=== PATIENT | male | born 1980 | race Caucasian/White ===

== ENCOUNTER 2017-06-29 20:08 | Emergency (ER) | payer MEDICARE, MEDICAID ==
[2017-06-29] MEDS ORDERED: MORPHINE SULFATE 10 MG/ML INJ IV ONE (20:25)
[2017-06-29] MEDS ORDERED: ONDANSETRON HCL INJ/PF 4 MG/2 ML SDV IV ONE (20:25)
--- NOTE | 2017-06-29 20:26 | ER Document Report ---
ED Fall - General Chief Complaint: Fall Stated Complaint: MID LOWER BACK PAIN Time Seen by Provider: 06/29/17 20:17 Notes: Patient is a 37-year-old male who comes emergency department for chief complaint of fall, he states he was standing on the next and last rung on a step ladder when the ladder broke and he fell to the floor. He states he mainly landed on his left hip but he reports pain in his lower back and in both hips. He denies head injury, neck pain, focal numbness or weakness, denies incontinence of bowel or urinary incontinence. He does not take any daily medications. He denies any other injuries. Came by EMS, given 30 mg of Toradol. TRAVEL OUTSIDE OF THE [place] IN LAST 30 DAYS: No - Related data Allergies/Adverse Reactions: amoxicillin [Amoxicillin] Allergy (Verified 11/26/14 13:10) codeine [Codeine] Allergy (Verified 11/26/14 13:10) Past Medical History - General Information source: Patient - Social History Smoking Status: Never Smoker Frequency of alcohol use: None Drug Abuse: None Lives with: Family Family History: Reviewed & Not Pertinent - Medical History Medical History: Negative Surgical Hx: Negative - Immunizations Immunizations up to date: Yes Hx Diphtheria, Pertussis, Tetanus Vaccination: Yes Review of Systems - Review of Systems Constitutional: No symptoms reported EENT: No symptoms reported Cardiovascular: No symptoms reported Respiratory: No symptoms reported Gastrointestinal: No symptoms reported Genitourinary: No symptoms reported Male Genitourinary: No symptoms reported Musculoskeletal: See HPI Skin: No symptoms reported Hematologic/Lymphatic: No symptoms reported Neurological/Psychological: No symptoms reported Physical Exam - Vital signs Vitals: Temp Pulse BP Pulse Ox 97.6 F 68 133/88 H 96 06/29/17 20:45 06/29/17 20:45 06/29/17 20:45 06/29/17 20:45 Interpretation: Normal - General General appearance: Appears well, Alert, Anxious In distress: None - Patient talking nervously, appears to be anxious but does not appear to be in distress - HEENT Head: Normocephalic, Atraumatic Eyes: Normal Conjunctiva: Normal Extraocular movements intact: Yes Eyelashes: Normal Pupils: PERRL Nasal: Normal Mouth/Lips: Normal Mucous membranes: Normal Pharynx: Normal Neck: Normal - Respiratory Respiratory status: No respiratory distress Chest status: Nontender Breath sounds: Normal. No: Decreased air movement, Wheezing Chest palpation: Normal - Cardiovascular Rhythm: Regular. No: Tachycardia Heart sounds: Normal auscultation, S1 appreciated, S2 appreciated Murmur: No - Abdominal Inspection: Normal Distension: No distension Bowel sounds: Normal Tenderness: Nontender. No: Tender, Guarding Organomegaly: No organomegaly - Back Back: Tender - Generalized mild thoracic tenderness in the lower part of the thoracic back, generalized tenderness in the lumbar area as well. No saddle anesthesia, patient moves all extremities and full range of motion, normal distal neurovascular exam. - Extremities General upper extremity: Normal inspection, Nontender, Normal color, Normal ROM , Normal temperature General lower extremity: Normal inspection, Nontender, Normal color, Normal ROM , Normal temperature, Normal weight bearing. No: Kamryn's sign - Neurological Neuro grossly intact: Yes Cognition: Normal Orientation: AAOx4 Piter Coma Scale Eye Opening: Spontaneous [place] Coma Scale Verbal: Oriented [place] Coma Scale Motor: Obeys Commands Piter Coma Scale Total: 15 Speech: Normal Motor strength normal: LUE, RUE, LLE, RLE Sensory: Normal - Psychological Associated symptoms: Normal affect, Normal mood - Skin Skin Temperature: Warm Skin Moisture: Dry Skin Color: Normal Course - Re-evaluation Re-evalutation: Patient complaining of hips bilaterally, I do not appreciate any significant tenderness, I do appreciate some mid to lower back tenderness on exam, there are no signs of trauma, no ecchymosis. X-ray shows mild compression of L1 and L2 vertebral bodies, no fracture, no displacement. Suspect acute. However patient ambulates without difficulty, has full range of motion of extremities, has no numbness, has normal neurovascular examination. No saddle anesthesia. Patient given copy of his report, pain medication, specific instructions for close follow-up, return precautions. Discussed with brother at bedside. Patient and mother state understanding and agreement. - Vital Signs Vital signs: Temp Pulse Resp BP Pulse Ox 99.1 F 81 16 143/91 H 94 06/29/17 22:40 06/29/17 22:40 06/29/17 22:40 06/29/17 22:40 06/29/17 22:40 Discharge - Discharge Clinical Impression: Fall Qualifiers: Encounter type: initial encounter Qualified Code(s): W19.XXXA - Unspecified fall, initial encounter Lower back pain Qualifiers: Chronicity: acute Back pain laterality: bilateral Sciatica presence: without sciatica Qualified Code(s): M54.5 - Low back pain Condition: Stable Disposition: HOME, SELF-CARE Additional Instructions: X-ray imaging indicates a compression deformity in the lumbar spine, however there are no fractures or concerning abnormalities on your exam. He will be sore, take the pain medication as prescribed, take the muscle relaxer, apply ice tonight, apply heat to the area over the next few days. Call your primary care provider for a close follow-up in the next few days for additional management. Return immediately to the emergency department if you develop any concerning symptoms such as numbness, inability to urinate, accidentally soiling herself, or any other concerning symptoms. Prescriptions: Morphine Sulfate [Morphine Ir 15 Mg Tablet] 15 mg PO Q4HP PRN #15 tablet PRN Reason: Methocarbamol [Robaxin] 500 mg PO BID PRN #20 tablet PRN Reason: Referrals: AIDEE FERNÁNDEZ MD [Primary Care Provider] - Follow up as needed
--- NOTE | 2017-06-29 21:39 | RADIOLOGY REPORT (SQ) ---
EXAM DESCRIPTION: HIP BILATERAL COMPLETED DATE/TIME: 06/29/2017 9:18 pm REASON FOR STUDY: fall, pain COMPARISON: None. NUMBER OF VIEWS: Two views. TECHNIQUE: AP pelvis and additional frog-leg view of the right and left hip. LIMITATIONS: None. FINDINGS: MINERALIZATION: Normal. PRIMARY HIP: No fracture or dislocation. No worrisome bone lesions. OPPOSITE HIP: No fracture or dislocation. No worrisome bone lesions. PUBIS AND ISCHIUM: No fracture. PELVIS: No fracture. SACRUM: No fracture or dislocation. No worrisome bone lesions. LOWER LUMBAR SPINE: No fracture or dislocation. No worrisome bone lesions. No significant disc disea se. SOFT TISSUES: No findings. OTHER: No other significant finding. IMPRESSION: No fracture. TECHNICAL DOCUMENTATION: JOB ID: [id number] [employer]- All Rights Reserved
--- NOTE | 2017-06-29 21:40 | RADIOLOGY REPORT (SQ) ---
EXAM DESCRIPTION: L SPINE WHOLE COMPLETED DATE/TIME: 06/29/2017 9:18 pm REASON FOR STUDY: fall, pain COMPARISON: None. NUMBER OF VIEWS: Five views including obliques. TECHNIQUE: AP, lateral, oblique, and sacral radiographic images acquired of the lumbar spine. LIMITATIONS: None. FINDINGS: MINERALIZATION: Normal. SEGMENTATION: Normal. No transitional anatomy. ALIGNMENT: Normal. VERTEBRAE: Mild compression of the L1 and L2 vertebral body. DISCS: Preserved height. No significant osteophytes or end plate irregularity. POSTERIOR ELEMENTS: Mild lower lumbar facet arthropathy. Pedicles and facets are intact. No pars de fect or posterior arch defects. HARDWARE: None in the spine. PARASPINAL SOFT TISSUES: Normal. PELVIS: Intact as visualized. No fractures or worrisome bone lesions. SI joints intact. OTHER: No other significant finding. IMPRESSION: Mild compression of the L1 and L2 vertebral body, presumed acute injury given the clinic al history. TECHNICAL DOCUMENTATION: JOB ID: [id number] [employer]- All Rights Reserved
--- NOTE | 2017-06-29 21:41 | RADIOLOGY REPORT (SQ) ---
EXAM DESCRIPTION: T SPINE AP/LAT COMPLETED DATE/TIME: 06/29/2017 9:18 pm REASON FOR STUDY: fall, pain COMPARISON: None. NUMBER OF VIEWS: Two views. TECHNIQUE: AP and lateral radiographic images acquired of the thoracic spine. LIMITATIONS: None. FINDINGS: MINERALIZATION: Normal. ALIGNMENT: Normal. No scoliosis. VERTEBRAE: No fracture or bone lesion. Maintained height, normal segmentation. DISCS: Multilevel disc space narrowing with osteophytes. HARDWARE: None in the spine. MEDIASTINUM AND SOFT TISSUES: Normal heart size and aortic contour. No soft tissue abnormality. VISUALIZED LUNG DANIELS: Clear. OTHER: No other significant finding. IMPRESSION: SPONDYLOSIS WITHOUT BONE LESION OR FRACTURE. TECHNICAL DOCUMENTATION: JOB ID: [id number] [employer]- All Rights Reserved
[2017-06-29] MEDS ORDERED: HYDROCODONE/ACETAMINOPHEN 5-325 MG 6 TAB/DSPK PO PRN (22:14)
[2017-06-29 22:51] VITALS: BP 143/91
== END 2017-06-29 22:52 | disposition home or self-care (01) ==
LOC: ER 20:08
DX: M54.5 Low back pain (principal); M25.551 Pain in right hip; M25.552 Pain in left hip; W11.XXXA Fall on and from ladder, initial encounter; Y93.89 Activity, other specified; Z88.0 Allergy status to penicillin; Z88.5 Allergy status to narcotic agent
CPT/HCPCS: 99283; 96374; 96375; 72110; 73522; 72070; J2270; J2405; A9270

== ENCOUNTER 2017-07-03 16:49 | Emergency (ER) | payer MEDICARE, MEDICAID ==
[2017-07-03 17:00] VITALS: BP 182/106
--- NOTE | 2017-07-03 17:29 | ER Document Report ---
HPI - HPI Patient complains to provider of: constipation Onset: Other - days ago Onset/Duration: Gradual Quality of pain: Dull Severity: Mild Pain Level: 4 Associated Symptoms: None Exacerbated by: Denies Relieved by: Denies Similar symptoms previously: No Recently seen / treated by doctor: Yes Notes: Patient is a 37-year-old male who was seen here on June 29 for a fall from a ladder. Patient was discharged with p.o. morphine and a muscle relaxer. Patient states that since he started taking the morphine, he has not been able to have a bowel movement. He also complains of continued flank pain from the fall. No vomiting. Normal p.o. intake. Patient has used [id number] laxatives without improvement. - DERM Skin Color: Normal Past Medical History - General Information source: Patient, [facility] Records - Social History Smoking Status: Never Smoker Family History: Reviewed & Not Pertinent Patient has suicidal ideation: No Patient has homicidal ideation: No Renal/ Medical History: Denies: Hx Peritoneal Dialysis - Immunizations Immunizations up to date: Yes Hx Diphtheria, Pertussis, Tetanus Vaccination: Yes Vertical Provider Document - CONSTITUTIONAL Agree With Documented VS: Yes Exam Limitations: No Limitations General Appearance: WD/WN, No Apparent Distress - INFECTION CONTROL TRAVEL OUTSIDE OF THE [place] IN LAST 30 DAYS: No - HEENT HEENT: Atraumatic, Normocephalic - RESPIRATORY Respiratory: Breath Sounds Normal, No Respiratory Distress, Chest Non-Tender O2 Sat by Pulse Oximetry: 97 - CARDIOVASCULAR Cardiovascular: Regular Rate, Regular Rhythm - GI/ABDOMEN Gastrointestinal: Abdomen Soft, Abdomen Non-Tender, Normal Bowel Sounds - BACK Back: Normal Inspection - MUSCULOSKELETAL/EXTREMETIES Musculoskeletal/Extremeties: MAEW, FROM, Non-Tender - NEURO Level of Consciousness: Awake, Alert, Appropriate - DERM Integumentary: Warm, Dry Course - Re-evaluation Re-evalutation: 07/03/17 17:26 Abdominal exam is benign. Good bowel sounds are noted. Discussed need to avoid opiate-based medicines due to the constipation side effect. Recommended use of MiraLAX, citrate of magnesia, high-fiber diet, and enema if necessary. Recommend use of NSAIDs such as ibuprofen, or Aleve for his pain rather than the morphine. Patient will follow-up with his primary care doctor tomorrow. - Vital Signs Vital signs: Temp Pulse Resp BP Pulse Ox 98.8 F 101 H 16 182/106 H 97 07/03/17 16:55 07/03/17 16:55 07/03/17 16:55 07/03/17 16:55 07/03/17 16:55 Discharge - Discharge Clinical Impression: Therapeutic opioid induced constipation Condition: Good Disposition: HOME, SELF-CARE Instructions: Constipation ([facility]) Additional Instructions: For constipation, you can use citrate of magnesia and/or MiraLAX. You also can increase the fiber in your diet. Increase fluids. You may use a fleets enema if necessary. Return to the emergency department if worse or for any problems otherwise follow-up with your primary care doctor tomorrow. Avoid taking the morphine tablets for now. Use Aleve or Ibuprofen for pain as needed.
== END 2017-07-03 21:14 | disposition home or self-care (01) ==
LOC: ER 16:49
DX: K59.03 Drug induced constipation (principal); T40.2X5A Adverse effect of other opioids, initial encounter
CPT/HCPCS: 99283